=== PATIENT | male | born 1980 | race Caucasian/White ===

== ENCOUNTER → 2017-09-30 | Outpatient (REF) | payer OTHER ==
[2017-09-30 19:54] LABS: IMMMOTILE SPERM CENTRIFUGED ABSENT (ABSENT); IMMOTILE SPERM ABSENT (ABSENT); MOTILE SPERM ABSENT (ABSENT); MOTILE SPERM CENTRIFUGED ABSENT (ABSENT)
== END ==
LOC: M LAB REF 17:27
PROVIDERS: ATTEND Urology
DX: Z30.8 Encounter for other contraceptive management (principal)

== ENCOUNTER → 2024-12-10 | Outpatient (CLI) | payer OTHER | LOC: M WUC 11:39 | PROVIDERS: ATTEND Student in an Organized Health Care Education/Training Program | DX: M25.511 Pain in right shoulder (principal) ==

== ENCOUNTER → 2025-11-04 | Outpatient (REF) | payer OTHER ==
[2025-11-04 17:35] LABS: BASO # 0.0 10^3/uL (0.0-0.2); BASO % 0.6 % (0.0-1.0); EOS # 0.2 10^3/uL (0.0-0.5); EOS % 3.1 % (0.0-3.0); LYMPH # 2.3 10^3/uL (1.5-5.0); LYMPH % 33.7 % (24.0-44.0); MONO # 0.6 10^3/uL (0.0-0.8); MONO % 9.0 % (2.0-8.0); NEUTROPHILS # 3.7 10^3/uL (1.5-8.5); NEUTROPHILS % 53.5 % (36.0-66.0); PLATELET COUNT, AUTOMATED 262 10^3/uL (150-450)
[2025-11-04 17:49] LABS: ESTIMATED AVERAGE GLUCOSE 111.0 MG/DL (60-110)
[2025-11-04 18:00] LABS: ALT/SGPT 35 U/L (7.0-40); AST/SGOT 24 U/L (<34); CALCIUM LEVEL 9.4 MG/DL (8.5-10.1); CARBON DIOXIDE LEVEL 26 MMOL/L (20-31); CHLORIDE LEVEL 104 MMOL/L (98-107); CHOLESTEROL LEVEL 229 MG/DL (<200); CHOLESTEROL RISK RATIO 4.28 (<5); CREATININE FOR GFR 0.94 MG/DL (0.70-1.30); GLOMERULAR FILTRATION RATE > 90.0 (>60); LDL CHOLESTEROL 160.5 MG/DL (<100); NON-HDL-C 175.5 MG/DL; POTASSIUM SERUM 4.5 MMOL/L (3.5-5.1); SODIUM LEVEL 139 MMOL/L (136-145); TOTAL 25(OH) VITAMIN D 56.2 NG/ML (20.0-100.0); TRIGLYCERIDES LEVEL 75 MG/DL (<150)
[2025-11-04 18:04] LABS: AMORPHOUS SEDIMENT MODERATE (NEGATIVE); APPEARANCE, URINE TURBID (CLEAR); BACTERIA, URINE AUTO NEGATIVE (NEGATIVE); BILIRUBIN, URINE AUTO NEGATIVE (NEGATIVE); BLOOD, URINE BLOOD NEGATIVE (NEGATIVE); GLUCOSE, URINE (UA) AUTO NEGATIVE (NEGATIVE); KETONE, URINE AUTO NEGATIVE (NEGATIVE); LEUKOCYTE ESTERASE, URINE AUTO NEGATIVE (NEGATIVE); MUCUS, URINE SMALL (NEGATIVE); NITRITE, URINE AUTO NEGATIVE (NEGATIVE); PROTEIN, URINE AUTO NEGATIVE (NEGATIVE); RBC, URINE AUTO 0 /HPF (0-3); SPECIFIC GRAVITY URINE AUTO 1.025 (1.002-1.035); SQUAMOUS EPITHELIAL CELL UR AU 0 /HPF (0-6); UROBILINOGEN, URINE AUTO 0.2 mg/dL (0.0-2.0); WBC, URINE AUTO 0 /HPF (0-3)
== END ==
LOC: M SFHCLERA 10:17
PROVIDERS: ATTEND Internal Medicine
DX: Z00.00 Encounter for general adult medical examination without abnormal findings (principal)